=== PATIENT | male | born 1985 | race Caucasian/White ===

== ENCOUNTER 2019-07-08 13:48 | Emergency (ER) | payer MEDICAID ==
[~2019-07-08] VITALS: Ht 167.6 cm; Wt 84.8 kg
[2019-07-08 13:52] VITALS: BP_SYST 150; BP_SYST 162; BP_DIAS 106; BP_DIAS 93
--- NOTE | 2019-07-08 14:15 | NUR ---
PT TAKEN TO BED 9.
[2019-07-08] MEDS ORDERED: KETOROLAC 30 MG/ML VIAL IVP ONE (14:25)
[2019-07-08] MEDS ORDERED: ONDANSETRON 4 MG/2 ML VIAL IVP ONE (14:25)
[2019-07-08] MEDS ORDERED: NACL 0.9% 1,000 ML IV ONE (14:25)
--- NOTE | 2019-07-08 14:26 | NUR ---
PT C/O DIZZINESS UPON STANDING, VOMITING, DIARRHEA X7 DAYS. PT VOMITED X2 YESTERDAY, DIARRHEA X4 TODAY. PT DENIES FEVER. PT STATES HE IS STARTING TO FEEL BETTER TODAY BUT WANTS TO GET CHECKED. SITTING ON BED, RELAXED. VSS MEDHX: DENIES
[2019-07-08 15:06] LABS: BASOPHILS % (AUTO) 0.5 % (0.0-2.0); EOSINOPHILS # (AUTO) 0.1 K/uL (0-0.4); EOSINOPHILS % (AUTO) 1.4 % (0.0-4.0); HEMATOCRIT 45.2 % (36-52); HEMOGLOBIN 15.5 g/dL (12.0-18.0); LYMPHOCYTES # (AUTO) 1.6 K/uL (2.0-11.5); LYMPHOCYTES % (AUTO) 19.8 % (20.5-51.1); MEAN CORPUSCULAR HEMOGLOBIN 29 pg (27-31); MEAN CORPUSCULAR HGB CONC 34 g/dL (33-37); MEAN CORPUSCULAR VOLUME 84.3 fL (80-94); MONOCYTES # (AUTO) 0.5 K/uL (0.8-1.0); MONOCYTES % (AUTO) 5.8 % (1.7-9.3); NEUTROPHILS % (AUTO) 72.5 % (42.2-75.2); PLATELET COUNT (AUTO) 185 K/uL (140-450); RED BLOOD CELL COUNT(AUTO) 5.36 MIL/uL (4.20-6.10); RED CELL DISTRIBUTION WIDTH 13.3 % (11.6-13.7); WHITE BLOOD COUNT (AUTO) 8.3 K/uL (4.8-10.8)
[2019-07-08 15:17] LABS: APPEARANCE,URINE CLEAR (CLEAR); BILIRUBIN,URINE NEGATIVE (NEGATIVE); BLOOD, URINE 1+ (NEGATIVE); COLOR,URINE YELLOW (YELLOW); LEUKOCYTE ESTERASE ,URINE TRACE (NEGATIVE); NITRITE, URINE NEGATIVE (NEGATIVE); PH,URINE 6.5 (5.0-9.0); UGLUCOSE NEGATIVE (NEGATIVE)
[2019-07-08 15:38] LABS: POTASSIUM 3.3 mmol/L (3.5-5.1)
--- NOTE | 2019-07-08 15:38 | NUR ---
PT RESTING IN BED WITH EYES CLOSED. AT BEDSIDE.
[2019-07-08 15:39] LABS: ANION GAP 12.3 (8-16); CREATININE 0.8 mg/dL (0.7-1.3)
--- NOTE | 2019-07-08 15:42 | NUR ---
PT AMBULATES TO BATHROOM.
[2019-07-08 15:49] LABS: RBC,URINE 0-5 /HPF (0-5); WBC,URINE 0-5 /HPF (0-5)
[2019-07-08 16:22] VITALS: BP 162/93
--- NOTE | 2019-07-08 16:23 | NUR ---
Patient discharged with v/s stable. Written and verbal after care instructions given and explained. Patient alert, oriented and verbalized understanding of instructions. Ambulatory with to home. All questions addressed prior to discharge. ID band removed. Patient advised to follow up with PMD. Rx of ZOFRAN ODT 4 MG, IMODIUM 2 MG, BENTYL 20 MG given. Patient educated on indication of medication including possible reaction and side effects. Opportunity to ask questions provided and answered.
--- NOTE | 2019-07-09 08:31 | NUR ---
Late entry. Confirmed with RN 0.9 NS 1000ml IV completed at 1550.
== END 2019-07-08 16:23 | disposition home or self-care (01) ==
LOC: MED 13:48
DX: R11.2 Nausea with vomiting, unspecified (principal); R19.7 Diarrhea, unspecified; I10 Essential (primary) hypertension
CPT/HCPCS: 36415; 80053; 81001; 83690; 85025; 96361; 96374; 96375; 99283; J1885; J2405; J7030

== ENCOUNTER 2020-10-26 19:56 | Emergency (ER) | payer MEDICAID ==
[~2020-10-26] VITALS: Ht 165.1 cm; Wt 83.9 kg
[2020-10-26 20:25] VITALS: BP 136/90
--- NOTE | 2020-10-26 20:28 | NUR ---
TO LOBBY A/W BED AMBULATORY
--- NOTE | 2020-10-26 20:45 | NUR ---
SEEN AND EXAMINED BY PA WITH ORDERS AND CARRIED OUT
--- NOTE | 2020-10-26 22:25 | NUR ---
RESULT BACK AND NOTED BY PA AND FOR D/C
[2020-10-26 22:35] VITALS: BP 136/90
--- NOTE | 2020-10-26 22:35 | NUR ---
Patient discharged with v/s stable. Written and verbal after care instructions given and explained. Patient verbalized understanding. Ambulatory with steady gait. All questions addressed prior to discharge. Advised to follow up with PMD.
== END 2020-10-26 22:35 | disposition home or self-care (01) ==
LOC: MED 19:56
DX: S80.12XA Contusion of left lower leg, initial encounter (principal); W10.9XXA Fall (on) (from) unspecified stairs and steps, initial encounter; Y93.89 Activity, other specified; Y92.89 Other specified places as the place of occurrence of the external cause; Y99.8 Other external cause status
CPT/HCPCS: 73590; 99283